=== PATIENT | female | born 1995 | race Caucasian/White ===

== ENCOUNTER 2024-05-22 12:16 | Inpatient (IN) ==
[2024-05-22] MEDS ORDERED: Rocuronium 50 mg VIAL 10 mg/ml 5 ml VIAL (50 mg) ONE (12:19)
[2024-05-22] MEDS ORDERED: Succinylcholine 200 mg VIAL 20 mg/ml 10 ml VIAL (200 mg) ONE (12:20)
[2024-05-22] MEDS ORDERED: Propofol 10 mg/ml 100 ML BTL 1,000 MG/100 ML BTL ONE (12:43)
[2024-05-22] MEDS: Midazolam 5 mg/5 ml VIAL 1 mg/ml 5 ml VIAL (5 mg) IV SLOW PU ONE (12:52)
[2024-05-22 13:02] LABS: Venous Bicarbonate HCO3 22.4 mmol/L (24-28)
[2024-05-22] MEDS: HYDROmorphone 1 MG/1 ML SYRINGE IV ONE (13:02)
[2024-05-22] MEDS: Lactated Ringers 1000 ml BAG 1,000 ML IV ONE (13:03)
[2024-05-22 13:10] LABS: ABS Basophils 0.1 10^3/uL (0.0-0.1); ABS Eosinophils 0.2 10^3/uL (0.0-0.5); ABS Lymphocytes 1.3 10^3/uL (1.0-4.8); ABS Monocytes 0.4 10^3/uL (0.0-0.9); ABS Neutrophils 10.2 10^3/uL (1.5-7.6); Eosinophil % 1.4 %; Hematocrit 36.4 % (35-45); Lymphocyte % 10.9 %; Mean Corpuscular Hemoglobin 28.9 pg (27-33); Mean Corpuscular Hgb Conc 32.9 g/dL (31-36); Mean Corpuscular Volume 87.7 fL (80-97); Platelet Count 402 10^3/uL (150-450); Red Blood Count 4.15 10^6/uL (3.63-4.92); Red Cell Distribution Width 13.7 % (12-17); White Blood Count 12.1 10^3/uL (3.8-11.8)
[2024-05-22] MEDS: Charcoal ACTIVATED 50 GM/240 ML BTL PO ONE (13:19)
[2024-05-22] MEDS: Succinylcholine 200 mg VIAL 20 mg/ml 10 ml VIAL (200 mg) IV ONE (13:38)
[2024-05-22] MEDS: Etomidate 20 mg/10 ml 2 MG/ML 10 ml VIAL IV ONE (13:39)
[2024-05-22] MEDS: Midazolam 5 mg/ml concentrated 5 mg/ml 1 ml VIAL INJ ONE (13:39)
[2024-05-22 14:23] LABS: HCG Pregnancy < 0.60 mIU/mL
[2024-05-22 14:33] LABS: TSH Ultra Thyroid Stim Horm 0.69 mcIU/mL (0.34-5.60)
[2024-05-22] MEDS: Propofol 10 mg/ml 100 ML BTL 1,000 MG/100 ML BTL IV SCH (14:39)
[2024-05-22 14:52] LABS: ALT 7 U/L (7-52); AST 15 U/L (13-39); Albumin 3.9 g/dL (3.5-5.7); Albumin/Globulin Ratio 1.4 (1-3); Alkaline Phosphatase 58 U/L (35-149); Anion Gap 13 mmol/L (2-16); Blood Urea Nitrogen 10 mg/dL (6-24); CO2 Carbon Dioxide 20 mmol/L (22-32); Chloride 107 mmol/L (101-111); Creatinine, Serum 0.64 mg/dL (0.51-0.95); Globulin 2.8 g/dL (2-4); Glucose 116 mg/dL (70-100); Potassium 3.4 mmol/L (3.5-5.0); Sodium 140 mmol/L (135-145); Total Bilirubin 0.5 mg/dL (0.2-1.0); Total Protein 6.7 g/dL (6.4-8.9); eGFR CKD-EPI 122.6 (>60)
[2024-05-22 15:11] LABS: Acetaminophen < 15 mcg/mL; Alcohol, S < 13 mg/dL (<13); Salicylate < 2.50 mg/dL (<30)
[2024-05-22 15:15] LABS: Urine Appearance Turbid; Urine Bilirubin Negative (Negative); Urine Blood Trace (Negative); Urine Color Yellow; Urine Glucose Negative (Negative); Urine Ketones Trace (Negative); Urine Nitrite Negative (Negative); Urine Protein Trace (Negative); Urine Specific Gravity 1.028 (1.002-1.030); Urine Urobilinogen Negative (Negative); Urine pH 5.5 (5.0-8.0)
[2024-05-22 15:24] LABS: INR 1.04 (0.85-1.14)
[2024-05-22 15:28] LABS: Urine Benzodiazepine Screen Presumptive Positive (None Detect); Urine Cannabinoids Screen None Detected (None Detect); Urine Opiates Screen Presumptive Positive (None Detect)
[2024-05-22] MEDS: Midazolam 5 mg/5 ml VIAL 1 mg/ml 5 ml VIAL (5 mg) IV SLOW PU PRN (16:36)
[2024-05-22 16:40] LABS: Urine Bacteria 1+ /HPF (Absent); Urine Red Blood Cell 3+(>10/hpf) /HPF (0-Trace); Urine Sperm Present /HPF (Absent); Urine Squamous Epithelial Cell Present /HPF (Absent); Urine White Blood Cell 3+(>20/hpf) /HPF (0-Trace)
[2024-05-22 17:20] LABS: Magnesium 1.6 mg/dL (1.9-2.7)
[2024-05-22] MEDS ORDERED: Enoxaparin 40 MG/0.4 ML SYR SUBCUT SCH (18:00)
[2024-05-22] MEDS: KCL 20 MEQ/100 ML IVPREMIX 20 MEQ/100 ML BAG IV SCH (18:00)
[2024-05-22] MEDS: Magnesium Sulf 4 GM/100 ML IV 4,000 MG/100 ML BAG IVPB ONE (18:05)
[2024-05-22] MEDS: Chlorhexidine MOUTHWASH 0.12% 15 ML UDC TOPICAL SCH (18:09)
[2024-05-22] MEDS ORDERED: Propofol 10 MG/ML 20 ML BTL ONE (18:35)
[2024-05-22] MEDS: Famotidine IV 10 MG/ML 2 ml VIAL (20 mg) IV SLOW PU SCH (21:08)
[2024-05-22] MEDS: Enoxaparin 40 MG/0.4 ML SYR SUBCUT SCH (21:08)
[2024-05-23] MEDS: Midazolam 5 mg/5 ml VIAL 1 mg/ml 5 ml VIAL (5 mg) IV SLOW PU ONE ×2 (00:07→18:23)
[2024-05-23 04:12] LABS: ABS Basophils 0.1 10^3/uL (0.0-0.1); ABS Eosinophils 0.2 10^3/uL (0.0-0.5); ABS Lymphocytes 2.6 10^3/uL (1.0-4.8); ABS Monocytes 0.8 10^3/uL (0.0-0.9); Eosinophil % 2.1 %; Hemoglobin 11.3 g/dL (11.5-14.3); Mean Corpuscular Hemoglobin 29.9 pg (27-33); Mean Corpuscular Hgb Conc 34.2 g/dL (31-36); Mean Corpuscular Volume 87.4 fL (80-97); Platelet Count 375 10^3/uL (150-450); Red Blood Count 3.77 10^6/uL (3.63-4.92); White Blood Count 10.7 10^3/uL (3.8-11.8)
[2024-05-23 04:31] LABS: Albumin 3.4 g/dL (3.5-5.7); Albumin/Globulin Ratio 1.4 (1-3); Calcium 8.5 mg/dL (8.6-10.3); Creatinine, Serum 0.59 mg/dL (0.51-0.95); Globulin 2.5 g/dL (2-4); Magnesium 2.7 mg/dL (1.9-2.7); Phosphorus 3.3 mg/dL (2.5-5.0); Potassium 3.4 mmol/L (3.5-5.0); Total Bilirubin 0.6 mg/dL (0.2-1.0); Total Protein 5.9 g/dL (6.4-8.9)
[2024-05-23] MEDS: KCL 20 MEQ/100 ML IVPREMIX 20 MEQ/100 ML BAG IV SCH (06:31)
[2024-05-23] MEDS ORDERED: Pantoprazole VIAL 40 MG VIAL IV SCH (09:00)
[2024-05-23] MEDS: Midazolam 5 mg/5 ml VIAL 1 mg/ml 5 ml VIAL (5 mg) IV SLOW PU PRN (09:55)
[2024-05-23] MEDS: fentaNYL 100 mcg/2 ml 50 MCG/ML VIAL IV SLOW PU PRN ×2 (11:48→18:19)
[2024-05-23] MEDS ORDERED: Zosyn per Pharmacy NOTE FOLLOW UP PRN (18:46)
[2024-05-23] MEDS: Piperacillin/Tazobac 3.375 BAG 3.375 GM/100 ML BAG IV ONE (18:58)
[2024-05-23] MEDS: ZOSYN 3.375 GM Q8H per EXTENDED INFUSION IV SCH (22:27)
[2024-05-24] MEDS: Iodixanol 320 (CONTRAST) 100 ML SDV IV ONE (00:16)
[2024-05-24 04:22] LABS: ABS Eosinophils 0.1 10^3/uL (0.0-0.5); ABS Lymphocytes 1.7 10^3/uL (1.0-4.8); ABS Monocytes 0.8 10^3/uL (0.0-0.9); ABS Neutrophils 19.4 10^3/uL (1.5-7.6); ABS Nucleated RBC 0.01 10^3/ul; Eosinophil % 0.3 %; Hematocrit 33.2 % (35-45); Lymphocyte % 7.8 %; Mean Corpuscular Hemoglobin 28.9 pg (27-33); Mean Corpuscular Hgb Conc 33.1 g/dL (31-36); Mean Corpuscular Volume 87.2 fL (80-97); Mean Platelet Volume 7.3 fL (7.5-11.2); Platelet Count 336 10^3/uL (150-450); Red Blood Count 3.81 10^6/uL (3.63-4.92); White Blood Count 22.1 10^3/uL (3.8-11.8)
[2024-05-24 05:04] LABS: Albumin 3.3 g/dL (3.5-5.7); Albumin/Globulin Ratio 1.3 (1-3); Calcium 8.3 mg/dL (8.6-10.3); Creatinine, Serum 0.64 mg/dL (0.51-0.95); Globulin 2.6 g/dL (2-4); Magnesium 2.1 mg/dL (1.9-2.7); Potassium 3.8 mmol/L (3.5-5.0); Total Protein 5.9 g/dL (6.4-8.9); eGFR CKD-EPI 122.6 (>60)
[2024-05-24] MEDS: KCL 20 MEQ/100 ML IVPREMIX 20 MEQ/100 ML BAG IV ONE (12:50)
[2024-05-25 06:21] LABS: ABS Basophils 0.1 10^3/uL (0.0-0.1); ABS Eosinophils 0.2 10^3/uL (0.0-0.5); ABS Lymphocytes 1.9 10^3/uL (1.0-4.8); ABS Monocytes 0.6 10^3/uL (0.0-0.9); ABS Neutrophils 13.1 10^3/uL (1.5-7.6); Eosinophil % 1.2 %; Hematocrit 34.4 % (35-45); Hemoglobin 11.8 g/dL (11.5-14.3); Lymphocyte % 12.1 %; Mean Corpuscular Hemoglobin 29.9 pg (27-33); Mean Corpuscular Hgb Conc 34.3 g/dL (31-36); Mean Corpuscular Volume 87.2 fL (80-97); Mean Platelet Volume 7.2 fL (7.5-11.2); Platelet Count 378 10^3/uL (150-450); Red Blood Count 3.94 10^6/uL (3.63-4.92); Red Cell Distribution Width 13.8 % (12-17); White Blood Count 15.9 10^3/uL (3.8-11.8)
[2024-05-25 07:22] LABS: Albumin 3.7 g/dL (3.5-5.7); Albumin/Globulin Ratio 1.2 (1-3); Calcium 8.6 mg/dL (8.6-10.3); Creatinine, Serum 0.55 mg/dL (0.51-0.95); Globulin 3.1 g/dL (2-4); Magnesium 1.9 mg/dL (1.9-2.7); Potassium 4.2 mmol/L (3.5-5.0); Total Bilirubin 1.2 mg/dL (0.2-1.0); Total Protein 6.8 g/dL (6.4-8.9); eGFR CKD-EPI 127.2 (>60)
[2024-05-25] MEDS: Dexamethasone IV 4 MG/ML VIAL 1 ml VIAL IV SLOW PU ONE (08:47)
[2024-05-25 08:54] VITALS: BP 139/99
== END 2024-05-25 11:05 | disposition home or self-care (01) | DRG 812 ==
LOC: ED 12:16 → EDHOLD 13:03 → ICU 14:05 → EDHOLD 14:26 → ICU 19:24
PROVIDERS: ADMIT Internal Medicine Critical Care Medicine; ATTEND Internal Medicine Critical Care Medicine